=== PATIENT | male | born 1940 | race Caucasian/White ===

== ENCOUNTER 2018-01-24 14:06 | Inpatient (IN) ==
--- OUTSIDE RECORDS SUMMARY | 2018-01-24 14:14 | External Medical Summary | Continuity of Care Document ---
:1940 Author Organization [facility], [facility]. Allergies Active Description Code Type Severity Reaction Onset Reported/ Identified Relationship Clinical to Patient Status Yes sulfamethoxa 2827 Drug N/A N/A Confirmed zole Aller or gy Verified Yes trimethoprim 2873 Drug N/A N/A Confirmed Aller or gy Verified Yes Sulfamethoxa 69965 Drug Moderate vomiting~ 08/11/2004 zole 005Q6 Aller nausea gy Yes Trimethoprim 57144 Drug Moderate vomiting~ 08/11/2004 003UM Aller nausea gy Yes Sulfa sulfa Aller I NAUSEA,VO 07/07/2010 (Sulfonamide metho gy MARY Antibiotics) xazol e Yes Trimethoprim trime Aller I NAUSEA,VO 07/07/2010 thopr gy MARY im Yes No Known 62855 Drug N/A N/A 08/24/2014 Confirmed Drug Allergy 590 Aller but gy inactive Yes No Known NO NF N/A N/A 08/24/2014 Food Allergy KNOWN FOOD ALLER G Yes No Known NKDA Drug Unknown N/A 08/29/2014 Drug Aller Allergies gy Yes Bactrim 5086 Drug N/A N/A 03/01/2016 Aller gy Medications Medication Packaging Start Date Stop Date Route Dosage Sig 15.8 ML Bottle 01/25/2016 15.8 ML 1 Fluticasone Bottle USE 2 SPRAYS Propionate 50 IN EACH MCG/ACT Nasal NOSTRIL ONCE Suspension DAILY 07/31/2017 DICLOFENAC SODIUM Starting 3 days prior to surgery, instill 1 drop into the operative eye(s) 3 times a day 07/31/2017 DUREZOL After surgery instill 1 drop into the operative eye(s) 2 times a day for 2 weeks, then once daily for 2 weeks. 07/31/2017 POLYTRIM Starting 3 days prior to surgery Instill 1 drop into the operative eye(s) 3 times daily 08/01/2017 PREDNISOLONE After surgery ACETATE instill 1 drop into the operative eye(s) 3 times a day for 2 weeks, then follow taper schedule 08/21/2017 KETOROLAC Starting 3 TROMETHAMINE days prior to surgery, instill 1 drop into the operative eye(s) 3 times a day, and for 3 weeks after surgery Problems Date Dx Attending Type Code Diagnosis Diagnosed By Coded 05/06/2009 Nhi COPELAND, [place] 272.0 Hypercholesterolemia Jeramy Sears. 09/24/2011 [place] Hankins MD 785.2 Undiagnosed heart murmur Jeramy Sears. 11/28/2011 D 272.0 PURE HYPERCHOLESTEROLEM 11/28/2011 D V76.44 SCREEN MAL NEOP PROSTATE 06/03/2013 Orion HANKINS MD 272.0 PURE HYPERCHOLESTEROLEM JERAMY D 06/03/2013 Orion HANKINS MD 796.2 ELEV BL PRES W/O HYPERTN JERAMY D 06/03/2013 Orion HANKINS MD V76.44 SCREEN MAL NEOP PROSTATE JERAMY D 06/03/2013 [place] Hankins MD 244.9 Hypothyroidism Jeramy Sears. 08/29/2013 Orion HANKINS MD 244.9 HYPOTHYROIDISM NOS JERAMY Sears 02/11/2014 Orion HANKINS MD 244.9 HYPOTHYROIDISM NOS JERAMY Sears 07/28/2014 Nhi COPELAND, [place] 782.0 Tingling sensation Jeramy Sears. 08/24/2014 D 379.99 ILL-DEFINED EYE DIS NEC 08/29/2014 W 388.70 08/29/2014 A 780.4 08/29/2014 W V64.2 11/07/2014 Nhi COPELAND, [place] 786.2 Cough Jeramy D. 02/20/2015 [place] Hankins MD 786.2 Cough Jeramy Sears. 02/24/2015 [place] Hankins MD 424.1 Aortic valve Jeramy Sears. insufficiency 07/20/2015 Orion HANKINS MD E03.9 Hypothyroidism, JERAMY D unspecified 07/22/2015 Orion HANKINS MD R07.89 Other chest pain JERAMY D 07/29/2015 Orion HANKINS MD R07.89 Other chest pain JERAMY Sears 09/02/2015 [place] Hankins MD 786.2 Cough Jeramy D. 10/09/2015 [place] Hankins MD 461.8 Acute sinusitis, other Jeramy D. 10/29/2015 [place] Hankins MD 461.8 Acute sinusitis, other Jeramy D. 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 01/01/2016 Yani COPELAND, Ot 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 01/05/2016 Yani COPELAND, Ot 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 01/05/2016 Yani COPELAND, Ot 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 01/05/2016 Yani COPELAND, Ot 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 01/07/2016 Yani COPELAND, Ot 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, Cecilio A sinusitis A 01/11/2016 GaCecilio west Working J34.3 Hypertrophy of inferior Gaeddert, Cecilio A nasal turbinate A 01/11/2016 Cecilio Lomeli Working J01.11 Acute recurrent frontal Gaeddert , Cecilio A sinusitis A 01/11/2016 GaCecilio west Working 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, Cecilio A sinusitis A 01/11/2016 Cecilio Lomeli Working 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, Cecilio A sinusitis A 01/11/2016 GaCecilio west Working J34.3 Hypertrophy of inferior Gaeddert, Cecilio A nasal turbinate A 01/13/2016 Cecilio Lomeli Working 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, Cecilio A sinusitis A 01/13/2016 Cecilio Lomeli Working 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, Cecilio A sinusitis A 01/22/2016 Yani COPELAND, Ot 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 01/22/2016 Yani COPELAND, Ot 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 01/22/2016 Yani COPELAND, Ot 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 01/25/2016 Ceciilo Lomeli Working 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, Cecilio A sinusitis A 01/25/2016 Cecilio Lomeli Working 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, Cecilio A sinusitis A 01/25/2016 Cecilio Lomeli Working J34.3 Hypertrophy of nasal Gaeddert, Cecilio A turbinates A 02/08/2016 Yani COPELAND, Ot 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 02/08/2016 Yani COPELAND, Ot J32.2 CHRONIC ETHMOIDAL Ceiclio A SINUSITIS 02/08/2016 Yani COPELAND, Ot 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 awareness 03/01/2016 Nhi COPELAND, F 437.7 Transient global amnesia Jeramy Sears. 03/02/2016 LEONIDES Sears E03.9 Hypothyroidism, ALEX COPELAND unspecified 03/02/2016 LEONIDES Sears E78.5 Hyperlipidemia, ALEX COPELAND unspecified 03/02/2016 LEONIDES Sears G45.4 Transient global amnesia ALEX COPELAND 03/02/2016 LEONIDES Kenney R40.4 Transient alteration of ALEX COPELAND awareness 04/14/2016 Nhi COPELAND, F 682.6 Cellulitis of the leg Jeramy D. 04/26/2016 Nhi COPELAND, F 891.0 Open wound of knee, lower Jeramy D. 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 thigh] 07/20/2016 Nhi COPELAND, F 041.19 MRSA wound Jeramy Sears. 03/29/2017 Nhi COPELAND, F 729.5 Foot pain Jeramy D. 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, bilateral 07/19/2017 W H52.223 Regular astigmatism, bilateral 07/19/2017 W H18.51 Fuchs' dystrophy 07/19/2017 W H25.813 Combined 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, bilateral 07/19/2017 W H52.223 Regular astigmatism, bilateral 07/19/2017 W H18.51 Fuchs' dystrophy 07/19/2017 W H25.813 Combined 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, bilateral 07/19/2017 W H52.223 Regular astigmatism, bilateral 07/19/2017 W H18.51 Fuchs' dystrophy 07/19/2017 W H25.813 Combined 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, bilateral 07/19/2017 W H52.223 Regular astigmatism, bilateral 07/20/2017 W H18.51 Fuchs' dystrophy 07/20/2017 W H25.813 Combined 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, bilateral 07/20/2017 W H52.223 Regular astigmatism, bilateral 07/24/2017 W H18.51 Fuchs' dystrophy 07/24/2017 W H25.813 Combined 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, bilateral 07/24/2017 W H52.223 Regular astigmatism, bilateral 07/24/2017 W H18.51 Fuchs' dystrophy 07/24/2017 W H25.813 Combined 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, bilateral 07/24/2017 W H52.223 Regular astigmatism, bilateral 07/24/2017 W H18.51 Fuchs' dystrophy 07/24/2017 W H25.813 Combined 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, bilateral 07/24/2017 W H52.223 Regular astigmatism, bilateral 07/24/2017 W H18.51 Fuchs' dystrophy 07/24/2017 W H25.813 Combined 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, bilateral 07/24/2017 W H52.223 Regular astigmatism, bilateral 07/24/2017 W H18.51 Fuchs' dystrophy 07/24/2017 W H25.813 Combined 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, bilateral 07/24/2017 W H52.223 Regular astigmatism, bilateral 07/24/2017 W H18.51 Fuchs' dystrophy 07/24/2017 W H25.813 Combined 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, bilateral 07/24/2017 W H52.223 Regular astigmatism, bilateral 07/24/2017 W H18.51 Fuchs' dystrophy 07/24/2017 W H25.813 Combined 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1 Presence of intraocular lens 08/23/2017 W Z96.1 Presence of intraocular lens 08/23/2017 W Z96.1 Presence of intraocular lens 08/31/2017 W Z96.1 Presence of intraocular lens 10/11/2017 NHI COPELAND, D Z12.5 Encounter for screening JERAMY eSars for malignant neoplasm of prostate 10/11/2017 Nhi COPELAND, F 796.2 Elevated blood pressure Jeramy Junior without a diagnosis of hypertension 10/11/2017 Nhi OCPELAND, F V70.0 Health checkup Jeramy Junior 10/11/2017 Nhi COPELAND, F V70.0 Annual exam Jeramy Junior 10/11/2017 Nhi COPELAND, F 424.1 Aortic valve Jeramy Junior insufficiency Procedures Code [place] [address] COMPREHEN JERAMY HANKINS MD 11/28/2011 METABOLIC PANEL G0103 PSA SCREENING JERAMY HANKINS MD 11/28/2011 06828 METABOLIC JERAMY HANKINS MD 06/03/2013 [place] [address] ASSAY THYROID JERAMY HANKINS MD 06/03/2013 STIM HORMONE G0103 PSA SCREENING JERAMY HANKINS MD 06/03/2013 58092 ASSAY THYROID JERAMY HANKINS MD 08/29/2013 STIM HORMONE 43026 ASSAY THYROID JERAMY HANKINS MD 02/11/2014 STIM HORMONE FU3WK Followup 07/28/2014 appointment in 3 weeks MIN20 20 minute 07/28/2014 appointment [id number] 07/30/2014 Office/outpatient visit; established patient, level 4 47702 08/18/2014 Office/outpatient visit; established patient, level 4 FU3WK Followup 08/18/2014 appointment in 3 weeks MIN20 20 minute 08/18/2014 appointment [id number] EMERGENCY DEPT JERRICA ROONEY 08/24/2014 VISIT 71821 08/31/2014 Office/outpatient visit; established patient, level 2 17045 11/07/2014 Echocardiography, transthoracic, real-time with image documentation with or without M-mode recording 39535 11/10/2014 Office/outpatient visit; established patient, level 4 68422 02/24/2015 Office/outpatient visit; established patient, level 4 15964 ASSAY THYROID JERAMY HANKINS MD 07/20/2015 STIM HORMONE 68851 COMPREHEN JERAMY HANKINS MD 07/22/2015 METABOLIC PANEL 98715 ASSAY OF JERAMY HANKINS MD 07/22/2015 TROPONIN, QUANT 98343 COMPLETE CBC, JERAMY HANKINS MD 07/22/2015 AUTOMATED 52989 CARDIOVASCULAR JERAMY HANKINS MD 07/29/2015 STRESS TEST 06222 09/06/2015 Office/outpatient visit; established patient, level 3 92489 10/09/2015 Office/outpatient visit; established patient, level 4 REFER Set up patient 10/29/2015 referral to a oracle consultant [id number] 10/29/2015 Office/outpatient visit; established patient, level 4 12503 Nasal Cecilio Lomeli 11/10/2015 Endoscopy; diagnostic 17284 Nasal/sinus Cecilio Lomeli 01/26/2016 Endoscopy debridement 61707 Maxillary Cecilio Lomeli A 01/28/2016 Balloon Sinuplasty 66759 Frontal Cecilio Lomeli 01/28/2016 Balloon Sinuplasty 59454 Collection of 02/11/2016 venous blood by venipuncture 25954 Basic 02/11/2016 metabolic panel (Ca, CO2, Cl, Creatinine, Glu, K, Na, BUN) 75175 02/13/2016 Office/outpatient visit; established patient, level 3 75882 ROUTINE JERAMY HANKINS MD 03/01/2016 VENIPUNCTURE 24977 COMPREHEN NHI COPELAND, JERAMY Sears 03/01/2016 METABOLIC PANEL 86019 ASSAY THYROID JERAMY HANKINS MD 03/01/2016 STIM HORMONE 75377 ASSAY OF JERAMY HANKINS MD 03/01/2016 TROPONIN, QUANT 66117 COMPLETE CBC, JERAMY HANKINS MD 03/01/2016 AUTOMATED 95871 PROTHROMBIN JERAMY HANKINS MD 03/01/2016 TIME 81608 JERAMY HANKINS MD 03/01/2016 ELECTROCARDIOGRAM, TRACING 23232 EMERGENCY DEPT JERAMY HANKINS MD 03/01/2016 VISIT G0378 HOSPITAL JERAMY HANKINS MD 03/01/2016 [place] [address] Initial 03/01/2016 observation care/day moderate severity Transfer of 03/09/2016 TCARE2 Care from Inpatient Hospital 31331 Duplex scan of 03/09/2016 extracranial arteries; complete bilateral study FU2WK Follow up 03/09/2016 appointment in 2 weeks MIN20 20 minute 03/09/2016 appointment REFER Set up patient 03/09/2016 referral to a oracle consultant [id number] Transitional 03/15/2016 care manage service 7 day discharge 97029 04/14/2016 Office/outpatient visit; established patient, level 3 FU3DY Follow up 04/26/2016 appointment in 3 days 77503 04/26/2016 Office/outpatient visit; established patient, level 4 67347 04/29/2016 Office/outpatient visit; established patient, level 4 FU3DY Follow up 04/29/2016 appointment in 3 days 28789 COMPLETE CBC, JERRICA ROONEY 05/03/2016 AUTOMATED 20186 RBC SED RATE, JERRICA ROONEY 05/03/2016 AUTOMATED 45623 Collection of 05/03/2016 venous blood by venipuncture 81274 Complete blood 05/03/2016 count (CBC), automated (Hgb, Hct, RBC, WBC, platelets) and automated differential WBC 21628 Sedimentation 05/03/2016 rate, non-automated 91476 05/03/2016 Office/outpatient visit; established patient, level 4 03992 Collection of 05/06/2016 venous blood by venipuncture 97924 Complete blood 05/06/2016 count (CBC), automated (Hgb, Hct, RBC, WBC, platelets) and automated differential WBC 21691 Sedimentation 05/06/2016 rate, non-automated 93326 05/06/2016 Office/outpatient visit; established patient, level 4 51192 05/06/2016 Office/outpatient visit; established patient, level 2 59953 05/06/2016 Office/outpatient visit; established patient, level 2 16993 05/09/2016 Office/outpatient visit; established patient, level 2 25806 05/17/2016 Office/outpatient visit; established patient, level 2 39302 05/17/2016 Office/outpatient visit; established patient, level 3 46784 07/20/2016 Office/outpatient visit; established patient, level 4 45349 04/12/2017 Office/outpatient visit; established patient, level 3 52889 EYE EXAM, NEW 07/19/2017 PATIENT 85858 OPHTHALMIC 07/19/2017 BIOMETRY 64030 CATARACT SURG 08/08/2017 W/IOL, 1 STAGE 97674 CATARACT SURG 08/08/2017 W/IOL, 1 STAGE 99379 POSTOP 08/09/2017 FOLLOW-UP VISIT 46579 CATARACT SURG 08/22/2017 W/IOL, 1 STAGE 99682 CATARACT SURG 08/22/2017 W/IOL, 1 STAGE 57109 POSTOP 08/23/2017 FOLLOW-UP VISIT G0103 PSA SCREENING NHI COPELAND, JERAMY Sears 10/11/2017 63573 Immunization 10/11/2017 administration; one vaccine 83345 Blood, occult, 10/11/2017 fecal Hgb by immunoassay, qual, feces 80108 10/11/2017 Office/outpatient visit; established patient, level 4 MAGDA Preauthorize 10/11/2017 the zostax immunization RSBMP Return for a 10/11/2017 basic metabolic panel (BMP) blood test in the next weeks RSLIP Return for a 10/11/2017 fasting lipids in the next few weeks RSPSA Return for a 10/11/2017 PSA blood test in the next few weeks RSTSH Return for a 10/11/2017 TSH (thyroid) blood test in the next few weeks G0439 Annual 10/11/2017 wellness visit, includes a PPPS, subsequent visit 84344 Screening 10/11/2017 visual acuity, quantitative, bilateral 22882 Pure tone 10/11/2017 audiometry (threshold); air only 30194 Collection of 10/11/2017 venous blood by venipuncture 24978 Prostate 10/11/2017 specific antigen, total Results Test Result Range Basic Metabolic Panel - 06/03/13 07:32 Sodium 139 MMOLL 134-145 Potassium 4.2 MMOLL 3.6-5.0 Chloride 104 MMOLL 98-107 CO2 27 MMOLL 22-30 Glucose 96 MG/DL 75-110 BUN 14 MG/DL 9-20 Creatinine .9 MG/DL 0.8-1.7 Calcium 9.6 MG/DL 8.4-10.2 PSA - 06/03/13 07:32 PSA 1.66 NG/ML < 4.00 TSH - 06/03/13 07:32 TSH 6.31 UIUML 0.50-6.00 TSH - 08/29/13 07:45 TSH 2.21 UIUML 0.50-6.00 TSH - 02/11/14 08:01 TSH 2.97 UIUML 0.50-6.00 TSH - 07/20/15 12:39 TSH 3.29 UIUML 0.50-6.00 Comprehensive Metabolic Panel - 07/22/15 13:12 Sodium 142 MMOLL 134-145 Potassium 4.3 MMOLL 3.6-5.0 Chloride 102 MMOLL 98-107 CO2 25 MMOLL 22-30 Glucose 86 MG/DL 75-110 BUN 18 MG/DL 9-20 Creatinine .84 MG/DL 0.8-1.7 Calcium 9.3 MG/DL 8.4-10.2 T Bili 1.3 MG/DL 0.2-1.3 T. Protein 7.0 G/DL 6.3-8.2 A/G Ratio 1.5 RATIO Albumin 4.2 G/DL 3.5-5.0 Alk Phos 99 U/L 38-126 ALT 48 U/L 11-66 AST 42 U/L 14-36 Troponin I - 07/22/15 13:19 Troponin I < 0.06 NG/ML CBC - 07/22/15 14:19 Eos # 0.20 x10^3 0-0.5 Eos % 3.8 % 0-4 HCT 44.5 % 42.0-52.0 HGB 15.8 G/DL 14.0-18.0 Lymph # 1.18 x10^3 1.0-4.0 Lymph % 22.6 % 20-50 MCH 30.0 PG 27.0-31.0 MCHC 35.5 G/DL 32.0-36.0 MCV 84.4 FL 80-94 Forest # 0.68 x10^3 0.0-0.8 Forest % 13.0 % 1.0-9.0 MPV 11.2 FL 6.0-10.0 Platelet 180 x10^3 150-400 RBC 5.27 x10^3 4.60-6.20 RDW 15.6 % 12-15 WBC 5.23 x10^3 5.8-10.8 Baso # 0.02 x10^3 0-0.2 Baso % 0.4 % 0-2 Neut % 60.2 % 50-70 Neut # 3.15 x10^3 3.0-7.0 CBC - 03/01/16 14:46 Eos # 0.06 x10^3 0-0.5 Eos % 0.9 % 0-4 HCT 41.9 % 42.0-52.0 HGB 15.0 G/DL 14.0-18.0 Lymph # 1.27 x10^3 1.0-4.0 Lymph % 19.9 % 20-50 MCH 30.7 PG 27.0-31.0 MCHC 35.8 G/DL 32.0-36.0 MCV 85.9 FL 80-94 Forest # 0.67 x10^3 0.0-0.8 Forest % 10.5 % 1.0-9.0 MPV 10.2 FL 6.0-10.0 Platelet 176 x10^3 150-400 RBC 4.88 x10^3 4.60-6.20 RDW 16.9 % 12-15 WBC 6.39 x10^3 5.8-10.8 Baso # 0.03 x10^3 0-0.2 Baso % 0.5 % 0-2 Neut % 68.2 % 50-70 Neut # 4.36 x10^3 3.0-7.0 Comprehensive Metabolic Panel - 03/01/16 14:57 Sodium 141 MMOLL 134-145 Potassium 4.1 MMOLL 3.6-5.0 Chloride 107 MMOLL 98-107 CO2 26 MMOLL 22-30 Glucose 106 MG/DL 75-110 BUN 27 MG/DL 9-20 Creatinine 1.19 MG/DL 0.8-1.7 Calcium 9.3 MG/DL 8.4-10.2 T Bili 1.5 MG/DL 0.2-1.3 T. Protein 6.6 G/DL 6.3-8.2 A/G Ratio 1.4 RATIO Albumin 3.8 G/DL 3.5-5.0 Alk Phos 74 U/L 38-126 ALT 38 U/L 11-66 AST 47 U/L 14-36 EGFR 60 MLMIN Protime - 03/01/16 14:57 INR 1.0 Protime 10.5 SEC 9.5-12.3 Troponin I - 03/01/16 15:11 Troponin I < 0.06 NG/ML TSH - 03/01/16 15:12 TSH 2.23 UIUML 0.50-6.00 CBC - 05/03/16 15:08 Eos # 0.21 x10^3 0-0.5 Eos % 2.8 % 0-4 HCT 42.2 % 42.0-52.0 HGB 15.1 G/DL 14.0-18.0 Lymph # 1.47 x10^3 1.0-4.0 Lymph % 19.6 % 20-50 MCH 30.8 PG 27.0-31.0 MCHC 35.8 G/DL 32.0-36.0 MCV 86.1 FL 80-94 Forest # 0.98 x10^3 0.0-0.8 Forest % 13.0 % 1.0-9.0 MPV 10.7 FL 6.0-10.0 Platelet 198 x10^3 150-400 RBC 4.90 x10^3 4.60-6.20 RDW 15.3 % 12-15 WBC 7.51 x10^3 5.8-10.8 Baso # 0.03 x10^3 0-0.2 Baso % 0.4 % 0-2 Neut % 64.2 % 50-70 Neut # 4.82 x10^3 3.0-7.0 Sed Rate (ESR) - 05/03/16 15:08 Sed Rate (ESR) 3 MM/hr 0-15 M120.0120 - 05/23/16 08:44 SODIUM WOUND CULTURE DEEP TISS-AER/AN PSA Scr - 10/11/17 15:05 PSA 3.17 ng/mL 0.00-4.00 Encounters ACCT No. Visit Discharge Status Pt. Type Provider Facility Loc./Unit Complaint Date/Time [id number] 10/12/2017 10/12/2017 DIS Outpatie RATZLAFF [place] [facility] 07:44:00 07:44:00 nt , [facility] [id number] 05/03/2016 05/03/2016 DIS Outpatie DHARA HERRMANN, [place] [facility] 13:34:00 13:34:00 nt [facility] [id number] 03/01/2016 03/02/2016 DIS Outpatie ULLOM [place] [facility]1 17:37:00 09:25:00 nt KANDI Elizabeth MD, [facility] [id number] 07/29/2015 07/29/2015 DIS Outpatie RATZLAFF [place] [facility] 10:00:00 11:43:00 nt , [facility] [id number] 07/22/2015 07/22/2015 DIS Outpatie RATZLAFF [place] [facility] 12:37:00 12:37:[address] [facility] [id number] 07/20/2015 07/20/2015 DIS Outpatie RATZLAFF [place] [facility] 11:52:00 11:52:[address] [facility] [id number] 02/11/2014 02/11/2014 DIS Outpatie RATZLAFF [place] [facility] 14:41:00 14:41:[address] [facility] [id number] 08/29/2013 08/29/2013 DIS Outpatie RATZLAFF [place] [facility] 12:23:00 12:23:[address] [facility] [id number] 06/03/2013 06/03/2013 DIS Outpatie RATZLAFF [place] [facility] 13:39:00 13:39:00 [id number]/24/2014 Document 21:05:00 Registra tion [id number] 11/28/2011 Document 13:32:00 Registra tion [id number] 08/02/2016 ACT Crista GriffithsRonnie west 43OFC 15:40:08 nt Cecilio Kenney [facility] [id number] 08/01/2016 Document 11:11:07 Registra tion [id number] 01/27/2016 ACT Crista Griffithsyonatanalexis Trujillo 43OFC 01:35:27 nt Cecilio Kenney [facility] [id number] 01/15/2016 ACT Crista GriffithsyonatanalexisRonnie 43OFC 18:27:02 nt Cecilio Kenney [facility] [id number] 01/14/2016 ACT Frankopatibree LomeliRonnie 43OFC 01:17:26 nt Cecilio Kenney [facility] [id number] 11/11/2015 ACT Crista GriffithsyonatanalexisRonnie 1 00:26:49 nt Cecilio Kenney [facility] [id number] 08/23/2017 Document 08:40:00 Registra tion [id number] 08/22/2017 Document 07:05:00 Registra tion [id number] 08/22/2017 Document 00:00:00 Registra tion [id number] 08/21/2017 Document 09:45:31 Registra tion [id number] 08/09/2017 Document 11:30:00 Registra tion [id number] 08/08/2017 Document 07:05:00 Registra tion [id number] 08/08/2017 Document 00:00:00 Registra tion [id number] 08/01/2017 Document 14:56:21 Registra tion [id number] 07/31/2017 Document 16:17:15 Registra tion [id number] 07/19/2017 Document 08:30:00 Registra tion [id number] 10/17/2017 ACT Document 01:01:34 Registra tion [id number] 06/30/2016 06/30/2016 CLS Preadmary Ball [facility] 981 09:00:00 23:59:59 SYDNEE Reynolds MD [facility] [id number] 06/15/2016 06/15/2016 CLS Crista Ball [facility] 934 08:55:00 23:59:59 maryan Reynolds MD [facility] [id number] 05/30/2016 05/30/2016 CLS Crista Ball [facility] 459 08:52:00 23:59:59 [facility] [id number] 05/23/2016 05/23/2016 CLS Outpatie ROBIN Estrada [facility] 891 07:46:00 23:59:59 nt SYDNEE Reynolds MD, [facility] [id number] 08/29/2014 Document 5 20:40:00 Registra ilana [id number] 10/11/2017 10/11/2017 DIS Outpatie Ratzl[facility] 1 13:31:41 15:12:35 Jeramy steinberg MD [id number] 12/29/2015 12/29/2015 CLS Outpatie Yani [facility] 062 11:21:00 23:59:59 maryan COP[place], [facility]
[2018-01-24 14:36] VITALS: BMI 24.2
[2018-01-24] MEDS ORDERED: SALINE FLUSH 10ml SYRINGE IV PRN (14:40)
[2018-01-24] MEDS: LR 1,000 ML IV SCH ×2 (15:35→22:45)
[2018-01-24] MEDS: ERTAPENEM 1 G in NS 100 ML IV SCH (15:40)
[2018-01-24] MEDS ORDERED: KETOROLAC 15 MG/ML INJECTION IVP ONE (20:47)
[2018-01-24] MEDS ORDERED: MORPHINE SULFATE 10mg/ml VIAL IVP PRN (20:49)
[2018-01-25] MEDS: LR 1,000 ML IV SCH ×4 (00:15→17:51)
[2018-01-25] MEDS: ONDANSETRON 4 MG/2 ML INJECTION IVP PRN ×3 (03:14→20:42)
[2018-01-25] MEDS: KETOROLAC 15 MG/ML INJECTION IVP PRN ×2 (03:18→18:16)
[2018-01-25] MEDS: ERTAPENEM 1 G in NS 100 ML IV SCH (09:07)
--- NOTE | 2018-01-25 09:30 | Anesthesia Preoperative Report ---
Anesthesia Preoperative Record - Date and Time Date: 01/25/18 Preoperative Diagnosis: acute cholecystitis,acute cholelythisis Proposed Procedure: Robotic Lap Anitra NPO Since Date: 01/25/18 NPO Since Time: 00:00 Allergies/Adverse Reactions: Allergies Allergy/AdvReac Type Severity Reaction Status Date / Time sulfamethoxazole Allergy Intermediate NAUSEA,VOMI Verified 01/24/18 15:25 T trimethoprim Allergy Intermediate NAUSEA,VOMI Verified 01/24/18 15:25 T - Vital Signs Vital Signs: Temperature 98.2 F 01/25/18 07:30 Pulse Rate 83 01/25/18 07:30 Respiratory Rate 16 01/25/18 07:30 Blood Pressure 147/89 H 01/25/18 07:30 Pulse Oximetry 93 01/25/18 07:30 Height and Weight: Height 1.75 m Weight 74.9 kg Body Mass Index 24.2 - Medications Inpatient Medications: Current Medications Ertapenem 1 g/ Sodium Chloride 100 mls @ 200 mls/hr IV DAILY MALU Last Admin: 01/25/18 09:07 Dose: 200 mls/hr Lactated Ringer's (Lactated Ringers) 1,000 mls @ 125 mls/hr IV .Q8H MALU Last Infusion: 01/25/18 09:07 Dose: 0 mls/hr Ketorolac Tromethamine (Toradol Inj) 15 mg IVP Q6H PRN PRN Reason: Pain Stop: 01/29/18 20:48 Last Admin: 01/25/18 03:18 Dose: 15 mg Morphine Sulfate (Morphine Sulfate Vial) 1 - 4 mg IVP Q1H PRN Ondansetron HCl (Zofran) 4 mg IVP Q6H PRN PRN Reason: Nausea &/or vomiting Last Admin: 01/25/18 03:14 Dose: 4 mg Sodium Chloride (Iv Flush) 10 ml IV PRN PRN PRN Reason: Flushing Last Admin: 01/24/18 15:39 Dose: 10 ml Home Medications: Home Medications Medication Instructions Recorded Confirmed Type Rosuvastatin Calcium [Crestor] 40 mg PO DAILY #0 07/07/10 01/24/18 History Acetaminophen [Acetaminophen Extra 500 - 1,000 mg PO Q6H PRN 01/24/18 01/24/18 History Strength] Ascorbic Acid [Vitamin C] 1,000 mg PO DAILY 01/24/18 01/24/18 History Aspirin 1 tab PO DAILY 01/24/18 01/24/18 History Calcium 500 + D [Os Trace-D 500] 1 tab PO DAILY 01/24/18 01/24/18 History Cholecalciferol (Vitamin D3) 1 tab PO DAILY 01/24/18 01/24/18 History [Vitamin D3] Docusate Sodium [Stool Softener] 50 mg PO DAILY 01/24/18 01/24/18 History Multivitamin [Multivitamins] 1 each PO DAILY 01/24/18 01/24/18 History albuterol sulfate HFA 90 1 puff INH Q6H PRN 01/24/18 01/24/18 History mcg/actuation aerosol inhaler levothyroxine 50 mcg tablet 50 mcg PO DAILY 01/24/18 01/24/18 History Is Patient on Beta David?: No - Medical History Cardiovascular: Reports: Heart Murmur, High Cholesterol Renal/Endocrine: Reports: Thyroid Disease - Surgical History HEENT Surgeries: Reports: Eye Surgery (cataracts), Nose Surgery (sinus 2015), Oral Surgery (4 implants), Tonsillectomy GI Surgery/Treatments: Reports: Hernia Repair Musculoskeletal Surgery/Tx: Reports: Other (right wrist and left hand, pins and plates) Anesthesia Reactions: None Hx Family Anesthesia Reaction: No History of Motion Sickness: No - Social History Smoking Status: Never smoker Hx Chewing Tobacco Use: No Second Hand Exposure: No Alcohol Intake: former - Pertinent Findings Laboratory: CBC and BMP 01/25/18 04:36 01/25/18 04:36 BMP 01/25/18 04:36 Sodium 142 Potassium 4.0 Chloride 109 H Carbon Dioxide 24 BUN 21.0 H Creatinine 0.8 Glucose 99 Calcium 8.6 Liver Function 01/25/18 Range/Units 04:36 Total Bilirubin 1.80 H (0.20-1.30) MG/DL AST 50 (17-59) U/L ALT 49 (1-50) U/L Alkaline Phosphatase 85 (38-126) U/L Albumin 3.6 (3.5-5.0) g/dL EKG: Sinus Rhythm - Physical Exam Respiratory Exam: Present: lungs clear Cardiovascular Exam: Present: regular rate and rhythm - Airway Assessment Mallampati Score: II TMD: 3 Fingerbreadths Neck Extension: fair Overall Assessment: may be difficult intubation - ASA ASA Score: 2 - Plan Anesthesia: General Inhalation Gases - Discussion Discussion: Discussed risks/options/alternatives of anesthesia and questions answered. Patient consents. Nursing pain assessment noted. Attestation Statement: Prior to the delivery of any anesthetic medication, I examined the patient, developed the plan, obtained the patient's consent and discussed the risk and benefits of the procedure with the patient/guardian.
--- NOTE | 2018-01-25 10:35 | General Surgery Progress Note ---
Subjective Patient reports: pain is less, voiding w/o difficulty, afebrile Narrative: He took Toradol twice for pain during the night, and is not in much pain this morning while at rest. Denies nausea. . - Vital Signs Last Vital Signs Temp 98.4 F 01/25/18 10:10 Pulse 78 01/25/18 10:10 Resp 18 01/25/18 10:10 BP 154/87 H 01/25/18 10:10 Pulse Ox 95 01/25/18 10:10 - Laboratory Result Diagrams: 01/25/18 04:36 01/25/18 04:36 - Abnormal Exam Abdominal: tender (RUQ with palpation) - Normal Exam General: awake, alert, oriented, no acute distress Cardiovascular: regular rate Respiratory: clear bilaterally, no labored breathing Abdominal: soft Psychiatric: normal affect Neurological: CN 2-12 grossly intact Assessment and Plan (1) Symptomatic cholelithiasis Current Visit: No Status: Acute (2) Total bilirubin, elevated Current Visit: Yes Status: Acute (3) Elevated amylase and lipase Current Visit: Yes Status: Acute (4) Gallstone pancreatitis Current Visit: Yes Status: Acute Plan: We are waiting on an Amylase result so it can be compared to the one yesterday from PCP before proceeding with surgery. Lipase is slightly elevated today. He still has some RUQ pain with palpation. Hospital Course Summary Disclaimer: The visit summary below is not to be considered part of the above Progress Note.
[2018-01-25] MEDS ORDERED: INDOCYANINE GREEN 25mg INJECTION IVP ONE (14:02)
[2018-01-25] MEDS ORDERED: SALINE FLUSH 10ml SYRINGE IV ONE (14:02)
[2018-01-25] MEDS ORDERED: FentaNYL 250 MCG/5 ML INJECTION ONE (14:31)
[2018-01-25] MEDS ORDERED: BUPIVACAINE 0.5%/EPI 1:200,000 INJ 30ml SDV INFIL ONE (15:38)
[2018-01-25] MEDS ORDERED: IOHEXOL 300mg/ml 50ml INJECTION OPSITE ONE (15:44)
[2018-01-25] MEDS ORDERED: GLUCAGON 1 MG INJECTION IVP ONE (15:47)
[2018-01-25] MEDS ORDERED: GLUCAGON 1 MG INJECTION ONE (15:54)
--- NOTE | 2018-01-25 16:11 | Progress Note ---
DATE 01/25/2018 FINDINGS Mr. Thayer was seen earlier today. He states his abdominal pain has now resolved. He was without complaints. OBJECTIVE VITALS: Afebrile. Normotensive. Current vitals include temperature 98.4, pulse 78, respirations 18, blood pressure 154/87, SaO2 95% on room air. HEENT: Normocephalic. Pupils are equally round and react to light and accommodation. CHEST: Clear to auscultation bilaterally. ABDOMEN: Palpation of the abdomen reveals it to be soft and nontender. I do not appreciate any HEART: Regular rate and rhythm. Normal S1, S2, without gallops, murmurs or clicks. ABDOMEN: Palpation of the abdomen today revealed it to be soft and completely nontender. LABORATORY/RADIOGRAPHIC REVIEW Patient had a CBC today and his white count is improved at 7.8. Hemoglobin is stable at 14.4. The patient had a CMP today and his AST, ALT and alkaline phosphatase have returned to normal. His total bilirubin, however, is elevated at 1.8 from yesterday. His lipase was not obtained yesterday through [place]. Lipase today was obtained and found to be elevated at 1121. Serum amylase was also obtained, however, today and his amylase has now returned to normal at 119. Yesterday I do believe it was 165 in [place]. ASSESSMENT 77-year-old gentleman with symptomatic cholelithiasis, component of gallstone pancreatitis which appears to have resolved from a clinical standpoint. Patient without element of abdominal pain and amylase has returned to normal. PLAN Proceed with robotic assisted laparoscopic cholecystectomy. Will plan on performing intraoperative cholangiogram given his elevation of his bilirubin to rule out choledocholithiasis. The above plan was discussed with the patient and family. They understood and agreed. JUAN CARLOS
--- NOTE | 2018-01-25 16:38 | Remote Fluorsocopy Report ---
Indication: LAP LLOYD PROCEDURE: RF cholangiogram operative: Comparison: None Findings: 8 fluoroscopic spot images are submitted from an intraoperative cholangiogram. Images demonstrate injection of contrast into the cystic duct with filling of the common duct and intrahepatic biliary tree. Moderate dilatation of the intra and extrahepatic bile ducts. Distal common duct appears slightly irregular without discrete filling defect. Contrast flows into the duodenum. Impression: Intraoperative fluoroscopy as above. Please refer to the dictated operative note for further details. Fluoroscopy time is 63 seconds. Fluoroscopy dose is 2030 mRad. .
[2018-01-25] MEDS ORDERED: HYDROMORPHONE 2 MG/ML INJECTION IVP PRN (16:42)
[2018-01-25] MEDS ORDERED: METOCLOPRAMIDE 10mg/2ml INJECTION IVP PRN (16:42)
--- NOTE | 2018-01-25 16:51 | General Surgery Procedure Note ---
Date of Procedure: 01/25/18 Surgeon: Colette Over Hauler Helper: Timothy Fleming APRN Postoperative Diagnosis: Robotic assisted laparoscopic cholecystectomy with Firefly imaging and intraoperative cholangiogram. Procedure: Gallstone Pancreatitis. Estimated Blood Loss: See Anesthesia Record.
--- NOTE | 2018-01-25 17:26 | General Surgery Progress Note ---
Subjective Narrative: Patient found to have filling defect at distal common duct upon cholangiogram. Arrangements made for ERCP in [place]. Continue Invanz tomorrow. - Vital Signs Last Vital Signs Temp 98.2 F 01/25/18 16:38 Pulse 98 01/25/18 17:20 Resp 22 01/25/18 17:20 BP 124/75 01/25/18 17:20 Pulse Ox 92 01/25/18 17:20 - Laboratory Result Diagrams: 01/25/18 04:36 01/25/18 04:36 Assessment and Plan (1) Symptomatic cholelithiasis Current Visit: No Status: Acute (2) Total bilirubin, elevated Current Visit: Yes Status: Acute (3) Elevated amylase and lipase Current Visit: Yes Status: Acute (4) Gallstone pancreatitis Current Visit: Yes Status: Acute Hospital Course Summary Disclaimer: The visit summary below is not to be considered part of the above Progress Note.
[2018-01-25] MEDS ORDERED: HYDROCODONE/APAP 5mg/325mg TABLET PO PRN (17:40)
[2018-01-25] MEDS ORDERED: DOCUSATE 100mg/10ml ORAL LIQUID PO SCH ×2 (17:40→20:00)
[2018-01-25] MEDS ORDERED: ALBUTEROL 2.5mg/3ml (0.083%) NEB AEROSOL PRN (17:49)
--- NOTE | 2018-01-25 18:25 | Anesthesia Postoperative Note ---
- Date and Time Date: 01/25/18 Time: 18:24 - Status Patient Participated in Evaluation: Patient Participated in Person Vital Signs: Temperature 97.1 F 01/25/18 17:50 Pulse Rate 91 01/25/18 18:05 Respiratory Rate 12 01/25/18 17:50 Blood Pressure 130/71 01/25/18 18:05 Pulse Oximetry 91 01/25/18 18:05 Respiratory Function: Airway Patent Cardiovascular Function: Regular Pulse EKG: Sinus Rhythm Mental Status: Alert and Oriented Pain Intensity: 7 Hydration: IV Infusing Nausea/Vomiting: None Complications During Recover: None Apparent - Follow-Up Instructions Instructions: Per Surgeon
--- NOTE | 2018-01-25 18:51 | Operative Note ---
DATE OF SERVICE 01/25/2018 SURGEON Ash Alvarenga MD RN NEONATAL ICU Timothy Fleming APRN PREOPERATIVE DIAGNOSES Acute cholecystitis, gallstone pancreatitis. POSTOPERATIVE DIAGNOSES Acute cholecystitis, gallstone pancreatitis. PROCEDURE Robotic-assisted laparoscopic cholecystectomy with intraoperative cholangiogram. ANESTHESIA General endotracheal anesthesia. EBL/FLUIDS Please see chart. BRIEF HISTORY/INDICATIONS Mr. Thayer is 77-year-old gentleman whom I was asked to see yesterday by his primary care physician as a result of his history for acute onset of severe right upper quadrant nominal pain and the finding of cholelithiasis upon ultrasonography. Upon examination the patient was found to be quite tender within his right upper quadrant. He did undergo a gallbladder sonogram that did reveal evidence for cholelithiasis and a component of pericholecystic edema consistent with that of acute cholecystitis. CMP was obtained and he was found have some slight elevation of his liver enzymes. Amylase was also obtained and found to be slightly elevated. The patient was subsequently admitted to the hospital and placed on broad-spectrum antibiotics. Repeat lab was obtained today. His amylase returned to normal. His abdominal pain had resolved today. Lipase was obtained today and found be minimally elevated. His total bilirubin had increased slightly to 1.8. Given the return of his amylase to normal in conjunction with the absence of abdominal pain upon physical examination, it is my recommendation that we go ahead and proceed with surgical intervention/cholecystectomy. For completeness please refer to notes included in the patient's chart. FINDINGS Upon laparoscopy the liver was smooth without nodularities. Peritoneum, small bowel, omentum, colon which were visualized were within normal limits. The gallbladder was found to be quite edematous in nature. Gallbladder was somewhat intrahepatic in nature. Intraoperative cholangiogram was obtained given his finding of increased bilirubin. Unfortunately the patient was found to have a distal common bile duct stone. The diameter of the cystic duct was fairly small and I elected therefore not to proceed with a transcystic bile duct exploration. The patient was given glucagon and the biliary tree was flushed. Unfortunately the patient continued to have radiographic evidence under fluoroscopy for a distal common bile duct stone. I elected to go ahead and proceed with cholecystectomy and to send the patient tomorrow for ERCP. NARRATIVE OF PROCEDURE After informed consent was obtained the patient was brought to the operative suite and placed on the table in supine fashion. The abdomen was prepped and draped in sterile fashion. Formal timeout was then completed. 0.25% Marcaine with epinephrine was injected just beneath the level of the umbilicus. A 2-cm curved incision was then made through the area of analgesia. Dissection was carried down to the deep subcuticular tissues and underlying fascia. Fascia was then grasped with two Erica clamps and anteriorly. A 1-cm incision was made between the two Erica clamps. Hemostat was then induced into the fascial incision and gently spread. U- stitch was then placed with 0-Vicryl. A 12-,, Ashli port was then placed in the peritoneal cavity and pneumoperitoneum was established to a patient pressure of 15 mmHg utilizing carbon dioxide. Next, two 8-mm da Freddie ports were then placed within the epigastric region and the left upper quadrant. A 5-mm assist port was then placed along the right lateral abdominal wall. Each port site was placed preinjected with 0.25% Marcaine with epinephrine and placed under direct visualization. The robot was then docked overlying the patient's right shoulder. The patient was placed in reverse Trendelenburg and rotated towards his left. Fenestrated bipolar grasper was placed in robotic arm #2. Hook cautery placed in robotic arm #1. I then proceeded to the console. I grasped the fundal portion of the gallbladder and then I began to retract in a cephalad fashion. My personal assistant then grasped the fundal portion of the gallbladder and continued to retract it in a somewhat cephalad fashion. There was a fair amount of omentum adhered to the gallbladder as a result of the inflammation. There was a component of pericholecystic edema. The omentum was carefully and meticulously dissected away from the gallbladder. Dissection was then carried down to the infundibular portion of the gallbladder. Infundibular portion of the gallbladder was then grasped and retracted a lateral and slightly caudad fashion to provide exposure to the triangle of Calot. Dissection was begun initially on the medial aspect of the infundibulum of the gallbladder. Dissection was begun high upon the infundibulum of the gallbladder. Next, out laterally the infundibular portion of the gallbladder was also incised with hook cautery. To better visualize I requested that my personal assistant retract the gallbladder in a more cephalad fashion. This did result in a small tear of the liver, most likely as a result of the fact that the gallbladder was somewhat more intrahepatic in nature than typical. A small amount of bleeding occurred. Dissection was then continued and the medial aspect of the gallbladder was then incised along the liver bed where the small tear in the liver occurred. Hemostasis was obtained. Utilizing Firefly biliary imaging the gallbladder did not fluoresce, indicative of cystic duct obstruction. The cystic artery was identified and dissected out high upon the midportion of the infundibulum of the gallbladder. Cystic artery was dissected out circumferentially. Posterior aspect of the infundibulum of the gallbladder was freed from the underlying liver bed fossa. Cystic duct was identified and dissected out circumferentially. One could see a stone within the infundibular portion of the gallbladder adjacent to the junction of the cystic duct and infundibulum of the gallbladder. A single Hem-o-antonina was then placed upon the cystic artery upon the midportion of the infundibulum of the gallbladder. An additional Hem-o -antonina clip was placed proximally. Cystic artery was then divided between the two Hem-o-antonina clips, resulting in further mobilization of the infundibulum of the gallbladder. Next, an additional Hem-o-Antonina clip was then placed upon the cystic duct adjacent to the infundibulum of the gallbladder. Ductotomy was then performed proximally. Hook cautery was removed and a cholangiocatheter and clamp was then advanced through the 8-mm port within the left upper quadrant. Cholangiocatheter was then placed directly into the ductotomy within the cystic duct. Robot was then undocked. Cholangiogram was then obtained. Under fluoroscopy one could see a fairly long cystic duct before entering the common bile duct. Proximally one could see intrahepatic radicles, left and right hepatic duct and common bile duct. Distally, however, there was no flow initially seen into the duodenum. One could see a meniscus sign involving the distal common bile duct consistent with that of a distal common bile duct stone. One could also see the pancreatic duct during the process of obtaining cholangiogram. The patient was then given glucagon intravenously in an attempt to cause relaxation of the sphincter of Oddi. Biliary tree was then copiously irrigated with saline. Repeat cholangiogram was obtained. One could still see a filling defect at the distal common bile duct. There was some contrast, however, that did progress on into the duodenum under fluoroscopy. There was not, however, a normal taper of the distal common bile duct, indicative that there was a residual stone that was present. I then began to inspect the cystic duct with more detail. Cystic duct was of a fairly small diameter and I did not feel that it would be conducive to proceed with a transcystic common bile duct exploration. I elected at this point in time to go ahead and complete the cholecystectomy and set the patient up for ERCP tomorrow to clear his common bile duct. Robot was then re-docked over the patient's right shoulder. Two distal Hem-o-Antonina clips were placed proximally upon the cystic duct in relation to the prior ductotomy. Gallbladder was dissected off the liver bed fossa. Robot was undocked. Gallbladder was removed from the infraumbilical port site. Pneumoperitoneum was then reestablished. Prior areas of dissection were inspected and found to be hemostatic in nature. The small tear that occurred along the medial aspect of the gallbladder fossa was completely hemostatic at this time. Additional irrigation was performed and all irrigant was suctioned until clear. Previously placed Hem-o-Antonina clips were visualized and remained to be intact. Next, the ports were removed under direct visualization. Pneumoperitoneum was released. Previously placed U- stitch at the infraumbilical port site was then secured, imbricating the fascia. All skin incisions were closed in a subcuticular fashion with 4-0 Monocryl. Dermabond was placed overlying the incisions. The patient was awakened from his anesthetic and sent back to the recovery once deemed in stable condition. JUAN CARLOS
[2018-01-26] MEDS: LR 1,000 ML IV SCH (00:55)
[2018-01-26] MEDS: KETOROLAC 15 MG/ML INJECTION IVP PRN (05:31)
[2018-01-26 07:44] VITALS: BP 136/79; PULSE 88; RESP 18; TEMP 98.3; O2SAT 92
--- NOTE | 2018-01-26 07:48 | General Surgery Progress Note ---
Subjective Narrative: Feeling better this morning, only pain med was about 5am. He denies nausea, is voiding and ambulating without difficulty. Anticipate going by private care [facility] this morning for ERCP. filled [facility] Rx yesterday. Post op activity and expectations already discussed and reviewed again this am. Post op appointment is February 06. - Vital Signs Last Vital Signs Temp 98.3 F 01/26/18 07:43 Pulse 88 01/26/18 07:43 Resp 18 01/26/18 07:43 BP 136/79 01/26/18 07:43 Pulse Ox 92 01/26/18 07:43 - Laboratory Result Diagrams: 01/26/18 04:50 01/26/18 04:50 Laboratory Tests 01/25/18 01/25/18 01/26/18 04:36 04:36 04:50 Total Bilirubin 1.80 H 3.20 H AST 50 191 H D ALT 49 178 H D Alkaline Phosphatase 85 129 H D Lipase 1121 H 3812 H D - Normal Exam General: awake, alert, oriented, no acute distress Cardiovascular: regular rate Respiratory: no labored breathing Abdominal: soft, appropriately tender (trocar sites and some mild discomfort with activity RUQ), incision(s) (CDI ecchymosis at trocar sites) Psychiatric: normal affect Assessment and Plan (1) Gallstone pancreatitis Current Visit: Yes Status: Acute (2) Symptomatic cholelithiasis Current Visit: No Status: Acute (3) Total bilirubin, elevated Current Visit: Yes Status: Acute (4) Elevated amylase and lipase Current Visit: Yes Status: Acute Plan: He is feeling well for POD #1 post robotic lap moriah. Minimal to moderate discomfort, no nausea. VSS Retained CD stone noted on cholangiogram. Total Bilirubin increased to 3.20 today (1.8 pre op) AST/ALT 191/178 today (50/49 yesterday) Lipase also increased to 3812 today (1121 yesterday) Arrangements are made for direct admit to [facility] Dr. Jennifer Jo as arranged by Dr. York, with plan for ERCP tomorrow. Will keep Jerroll NPO, leave IV in place. H&P, op report and labs sent with patient Hospital Course Summary Disclaimer: The visit summary below is not to be considered part of the above Progress Note. Hospital Course: 01/24 Admitted to [facility] for pain and nausea control, repeat labs. Anticipate Robotic lap moriah on 01/25. 01/25 LABORATORY/RADIOGRAPHIC REVIEW Patient had a CBC today and his white count is improved at 7.8. Hemoglobin is stable at 14.4. The patient had a CMP today and his AST, ALT and alkaline phosphatase have returned to normal. His total bilirubin, however, is elevated at 1.8 from yesterday. His lipase was not obtained yesterday through [place]. Lipase today was obtained and found to be elevated at 1121. Serum amylase was also obtained, however, today and his amylase has now returned to normal at 119. Yesterday I do believe it was 165 in [place]. ASSESSMENT 77-year-old gentleman with symptomatic cholelithiasis, component of gallstone pancreatitis which appears to have resolved from a clinical standpoint. Patient without element of abdominal pain and amylase has returned to normal. PLAN Proceed with robotic assisted laparoscopic cholecystectomy. Will plan on performing intraoperative cholangiogram given his elevation of his bilirubin to rule out choledocholithiasis. The above plan was discussed with the patient and family. They understood and agreed. 01/26 He is feeling well for POD #1 post robotic lap moriah. Minimal to moderate discomfort, no nausea. VSS Retained CD stone noted on cholangiogram. Total Bilirubin increased to 3.20 today (1.8 pre op) AST/ALT 191/178 today (50/49 yesterday) Lipase also increased to 3812 today (1121 yesterday) [facility] York, with plan for ERCP tomorrow. Will keep Jerroll NPO, leave IV in place. H&P, op report and labs sent with patient
[2018-01-26] MEDS: ERTAPENEM 1 G in NS 100 ML IV SCH (07:50)
--- NOTE | 2018-01-26 08:20 | Discharge Summary ---
Discharge Information Date of admission: 01/25/18 13:58 Anticipated date of discharge: 01/26/18 Attending Physician: Ash Alvarenga MD Primary care physician: MD Aaron Muhammad MD Consults: Transfered to hospitalist Dr. Jennifer Jo at [facility] and Dr. Yrok for ERCP - Discharge Diagnosis (1) Gallstone pancreatitis Status: Acute (2) Symptomatic cholelithiasis Status: Acute (3) Total bilirubin, elevated Status: Acute (4) Elevated amylase and lipase Status: Acute - Procedures Procedures: DATE OF SERVICE 01/25/2018 SURGEON Ash Alvarenga MD PHYSICIST ASTROPHYSICS Timothy Fleming APRN PREOPERATIVE DIAGNOSES Acute cholecystitis, gallstone pancreatitis. POSTOPERATIVE DIAGNOSES Acute cholecystitis, gallstone pancreatitis. PROCEDURE Robotic-assisted laparoscopic cholecystectomy with intraoperative cholangiogram. - Laboratory Labs: 01/26/18 04:50 01/26/18 04:50 Laboratory Tests 01/25/18 01/25/18 01/26/18 04:36 04:36 04:50 Total Bilirubin 1.80 H 3.20 H AST 50 191 H D ALT 49 178 H D Alkaline Phosphatase 85 129 H D Lipase 1121 H 3812 H D - Radiology Radiology: Date of Exam: 01/25/18 Ordering Provider: Ash Alvarenga MD Type of Exam(s): RF cholangiogram operative Reason for Exam(s): LAP LLOYD Indication: LAP LLOYD PROCEDURE: RF cholangiogram operative: Comparison: None Findings: 8 fluoroscopic spot images are submitted from an intraoperative cholangiogram. Images demonstrate injection of contrast into the cystic duct with filling of the common duct and intrahepatic biliary tree. Moderate dilatation of the intra and extrahepatic bile ducts. Distal common duct appears slightly irregular without discrete filling defect. Contrast flows into the duodenum. Impression: Intraoperative fluoroscopy as above. Please refer to the dictated operative note for further details. Fluoroscopy time is 63 seconds. Fluoroscopy dose is 2030 mRad. - Pathology Pending - History of Present Illness HPI: BRIEF HISTORY/INDICATIONS Mr. Thayer is 77-year-old gentleman whom I was asked to see yesterday by his primary care physician as a result of his history for acute onset of severe right upper quadrant nominal pain and the finding of cholelithiasis upon ultrasonography. Upon examination the patient was found to be quite tender within his right upper quadrant. He did undergo a gallbladder sonogram that did reveal evidence for cholelithiasis and a component of pericholecystic edema consistent with that of acute cholecystitis. CMP was obtained and he was found have some slight elevation of his liver enzymes. Amylase was also obtained and found to be slightly elevated. The patient was subsequently admitted to the hospital and placed on broad-spectrum antibiotics. Repeat lab was obtained today. His amylase returned to normal. His abdominal pain had resolved today. Lipase was obtained today and found be minimally elevated. His total bilirubin had increased slightly to 1.8. Given the return of his amylase to normal in conjunction with the absence of abdominal pain upon physical examination, it is my recommendation that we go ahead and proceed with surgical intervention/cholecystectomy. Hospital Course This is a general summary of the patient's hospital course. For more details refer to the complete medical record. Hospital course: 01/24 Admitted to [facility] [place] and nausea control, repeat labs. Anticipate Robotic lap lloyd on 01/25. 01/25 LABORATORY/RADIOGRAPHIC REVIEW Patient had a CBC today and his white count is improved at 7.8. Hemoglobin is stable at 14.4. The patient had a CMP today and his AST, ALT and alkaline phosphatase have returned to normal. His total bilirubin, however, is elevated at 1.8 from yesterday. His lipase was not obtained yesterday through [facility]. Lipase today was obtained and found to be elevated at 1121. Serum amylase was also obtained, however, today and his amylase has now returned to normal at 119. Yesterday I do believe it was 165 in [facility]. ASSESSMENT 77-year-old gentleman with symptomatic cholelithiasis, component of gallstone pancreatitis which appears to have resolved from a clinical standpoint. Patient without element of abdominal pain and amylase has returned to normal. PLAN Proceed with robotic assisted laparoscopic cholecystectomy. Will plan on performing intraoperative cholangiogram given his elevation of his bilirubin to rule out choledocholithiasis. The above plan was discussed with the patient and family. They understood and agreed. 01/26 He is feeling well for POD #1 post robotic lap lloyd. Minimal to moderate discomfort, no nausea. VSS Retained CD stone noted on cholangiogram. Total Bilirubin increased to 3.20 today (1.8 pre op) AST/ALT 191/178 today (50/49 yesterday) Lipase also increased to 3812 today (1121 yesterday) Arrangements are made for direct admit to [facility] Dr. Jennifer Jo as arranged by Dr. York, with plan for ERCP tomorrow. Will keep Jerroll NPO, leave IV in place. H&P, op report and labs sent with patient Time spent with patient: 25 - 35 minutes Resuscitation Status: Full Code Discharge Plan - Med Rec/Dispo Referrals/Follow Up: Kelli Fleming APRN [Advanced Practice Nurse] - 02/06/18 11:15 am Additional Instructions: Go directly to [facility], Dr. Jennifer Jo accepting direct admission from [facility]/ Dr. Alvarenga/ Dr. York. 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
[2018-01-26] MEDS ORDERED: LEVOTHYROXINE 50 MCG TABLET PO SCH (09:00)
== END 2018-01-26 08:35 | disposition short-term general hospital (02) | DRG 417 ==
LOC: SRG
PROVIDERS: ADMIT Surgery; ATTEND Surgery